=== PATIENT | male | born 1995 | race Caucasian/White ===

== ENCOUNTER 2017-03-21 18:23 | Emergency (ER) | payer BC ==
[~2017-03-21] VITALS: Ht 180.3 cm; Wt 76.0 kg
[2017-03-21 19:06] VITALS: Ht 180.3 cm; Wt 76.0 kg
[2017-03-21] MEDS ORDERED: EPP3/2 IM (19:31)
[2017-03-21 19:35] VITALS: BP 131/78; PULSE 87; TEMP 36.7; O2SAT 97
--- NOTE | 2017-03-22 16:15 | EMERGENCY ROOM VISIT NOTE ---
History First contact with patient: 19:08 Chief Complaint: OTHER COMPLAINT Stated Complaint: POSSIBLE MUMPS History of Present Illness The patient is a 21 year old male who presents to the Emergency Room with complaints of possible exposure to months. Patient states that one of his roomates girlfriend was exposed to months. The roommates girlfriend has been asymptomatic and has not tested for mumps. The patient himself is not experiencing facial pain, fever, chills, lymphadenopathy, chest pain, abdominal pain, testicular pain, or difficulties using the bathroom. He states that he got his normal childhood immunizations when he was younger. He rates his overall discomfort a 0/10. He is a [employer] student. Review of Systems More than 10 systems were reviewed and otherwise negative with the exception of history of present illness. Past Medical/Surgical History No chronic medical disease Family History No pertinent family history Social History Smoking Status: Never Smoker Housing Status: lives with roommate Occupation Status: [employer] student Current/Historical Medications Scheduled PRN Epinephrine (Epipen), 0.3 MG IM UD PRN for Allergic Reaction Physical Exam Vital Signs Date Time Temp Pulse Resp B/P (MAP) Pulse Ox O2 Delivery O2 Flow Rate FiO2 03/21/17 19:35 36.7 87 18 131/78 97 18 19:06 36.7 87 18 131/78 97 Room Air Physical Exam VITALS: Vitals are noted on the nurse's note and reviewed by myself. Vital signs stable. GENERAL: Well-developed, well-nourished, white male, who is in no acute distress and resting comfortably. Patient is cooperative with the examination. MOUTH: Mucous membranes moist. Tonsils are not enlarged. Pharynx without erythema, blood, or exudate. Uvula midline. Airway patent. NECK: Supple without nuchal rigidity. No lymphadenopathy. No thyromegaly. Cervical spine is nontender. HEART: Regular rate and rhythm without murmurs gallops or rubs. LUNGS: Clear to auscultation bilaterally without wheezes, rales or rhonchi. No retractions or accessory muscle use. ABDOMEN: Positive normal bowel sounds x 4. Soft, nontender, without masses or organomegaly. No guarding or rebound tenderness. MUSCULOSKELETAL: No muscle atrophy, erythema, or edema noted. Full range of motion without joint tenderness in all extremities Medical Decision & Procedures ED Course Physical exam and history were performed. Nursing notes, EMR, and Medication List were personally reviewed. Patient appears to have had possible exposure to mumps about 2 weeks ago. The patient is asymptomatic at this time and appears well. He does not have a distinct exposure to mom's himself and is reportedly immunized as a child. The patient does not meet criteria for mumps testing at this time. If he develops symptoms he was asked to follow with [facility] or return to the ER for further management. The patient voiced understanding and was discharged home. The chart was completed utilizing [employer] Voice Recognition Software. Grammatical errors, random word insertions, pronoun errors, and incomplete sentences are an occasional consequence of this system due to software limitations, ambient noise, and hardware issues. Any formal questions or concerns about the content, text, or information contained within the body of this dictation should be directly addressed to the provider for clarification. . Medical Decision Differential diagnosis includes, but is not limited to: Infectious disease exposure, mumps, and others Impression Primary Impression: Infectious disease exposure Departure Information Dispostion Home / Self-Care Condition GOOD Forms HOME CARE DOCUMENTATION FORM, IMPORTANT VISIT INFORMATION Patient Instructions [facility], ED Mumps Additional Instructions You were seen and evaluated today on an emergency basis only. This is not a substitute for, or an effort to provide, complete comprehensive medical care. It is not possible to recognize and treat all injuries or illnesses in a single emergency department visit. For this reason it is recommended that you followup with [facility] or back in the ER if you develop new or worsening symptoms. You are welcome to return to the emergency department anytime with new, worsening, or concerning symptoms.
== END 2017-03-21 19:35 | disposition home or self-care (01) ==
LOC: C.EDB 18:25 → C.EDD 19:35
DX: Z20.89 Contact with and (suspected) exposure to other communicable diseases (principal)

== ENCOUNTER 2017-10-15 21:16 | Emergency (ER) | payer BC ==
[~2017-10-15] VITALS: Ht 180.3 cm; Wt 72.8 kg
[~2017-10-15 21:16] MED LIST: EPP3/2 IM
[2017-10-15 21:23] VITALS: TEMP 36.7; Ht 180.3 cm; Wt 72.8 kg
--- NOTE | 2017-10-15 22:35 | EMERGENCY ROOM VISIT NOTE ---
History First contact with patient: 21:28 Chief Complaint: URINARY SYMPTOMS Stated Complaint: PAINFUL URINATION, GROIN PAIN History of Present Illness The patient is a 22 year old male who presents to the Emergency Room via private vehicle with complaints of "painful urination, groin pain". The patient states that for the past 6 days he has been experiencing discomfort while urinating. He points to the urethral meatus is in the region of pain that he experiences. He notes that he has been in a monogamous heterosexual relationship for about 1 year. He states that he was seen 4 days ago at [facility] and he notes they performed a urinalysis as well as STI testing via urine. He notes that he was informed these were negative. He notes persistence of symptoms and now he has some pain in the left inguinal region. He rates the overall discomfort as a 2/10. He denies discharge. No hematuria. No fevers, chills, abdominal pain. He notes his partner has no symptoms. He notes that he engaged in oral as well as vaginal intercourse. Review of Systems A complete 10-point Review of Systems was discussed with the patient, with pertinent positives and negatives listed in the History of Present Illness. All remaining Review of Systems questions can be considered negative unless otherwise specified. Past Medical/Surgical History No pertinent. Family History No pertinent. Social History Smoking Status: Never Smoker Housing Status: lives with roommate Occupation Status: [employer] student Current/Historical Medications Scheduled PRN Epinephrine (Epipen), 0.3 MG IM UD PRN for Allergic Reaction Physical Exam Vital Signs Date Time Temp Pulse Resp B/P (MAP) Pulse Ox O2 Delivery O2 Flow Rate FiO2 10/15/17 23:51 63 18 116/62 99 Room Air 10/15/17 21:23 36.7 90 16 124/74 98 Room Air Physical Exam VITAL SIGNS - Vital signs and nursing notes were reviewed. Stable. Afebrile. GENERAL -22-year-old male appearing his stated age who is in no acute distress. Communicates well with provider and answers questions appropriately. SKIN - Without rashes. Skin overlying the inguinal region is unremarkable. The penis does elicit some erythema at the urethral meatus. There is serous discharge noted which could be residual urine. HEAD - NC/AT. EYES - Sclera anicteric. EARS - No deformities of external structures noted on gross examination bilaterally. NOSE - Midline and without cyanosis. No epistaxis or purulent drainage noted. MOUTH/OROPHARYNX - Without perioral cyanosis. ABDOMEN - Abdominal contour normal without pulsations or visible masses. No tenderness other than a palpable left inguinal lymph node noted which reproduce tenderness. : Testicle examination unremarkable. Scrotum unremarkable. Urethral meatal irritation/erythema noted. No epididymal tenderness. No inguinal hernia palpated. Medical Decision & Procedures ER Provider Diagnostic Interpretation: (TESTICULAR) SCROTUM-CONT CLINICAL HISTORY: 22 years-old Male presenting with penile pain with urination, L inguinal pain. TECHNIQUE: Real-time grayscale and color and spectral Doppler ultrasound imaging of the scrotum was performed. COMPARISON: None. FINDINGS: Right testis: Normal echogenicity and echotexture. Testis measures 3.4 x 4.4 x 2.3 cm. Normal color Doppler flow and arterial and venous waveforms in the testicular parenchyma. Epididymal head normal. No hydrocele. No varicocele. Left testis: Normal echogenicity and echotexture. Testis measures 2.9 x 4.4 x 2.1 cm. Normal color Doppler flow and arterial and venous waveforms in the testicular parenchyma. Epididymal head normal. Small hydrocele. Varicocele present. Symmetric perfusion of the testes. Other: Benign-appearing left inguinal lymph nodes. These are likely reactive. IMPRESSION: 1. No evidence of testicular torsion. 2. Left varicocele. 3. Small left hydrocele. Electronically signed by: Pepe Ramos M.D. 10/15/2017 10:42 PM Dictated Date/Time: 10/15/2017 10:41 PM Laboratory Results Test 10/15/17 21:56 10/15/17 23:15 Urine Color YELLOW Urine Appearance CLEAR (CLEAR) Urine pH 6.5 (4.5-7.5) Urine Specific [place] 1.017 (1.000-1.030) Urine Protein NEG (NEG) Urine Glucose (UA) NEG (NEG) Urine Ketones NEG (NEG) Urine Occult Blood NEG (NEG) Urine Nitrite NEG (NEG) Urine Bilirubin NEG (NEG) Urine Urobilinogen NEG (NEG) Urine Leukocyte Esterase NEG (NEG) Medications Administered Medications (Trade) Dose Ordered Sig/Tanvi Route Start Time Stop Time Status Last Admin Dose Admin Ceftriaxone Sodium (Rocephin Im) 250 mg NOW STAT IM 10/15/17 23:21 10/15/17 23:23 DC 10/15/17 23:52 250 MG Azithromycin (Zithromax Tab) 1,000 mg NOW STAT PO 10/15/17 23:21 10/15/17 23:23 DC 10/15/17 23:52 1,000 MG Medical Decision Patient was seen and evaluated as above in room C9. Review was performed of nursing notes and vital signs. After obtaining a thorough history and physical examination the above work up was performed. He presents today with burning with urination, with some pain in the left inguinal region. I suspect this is a lymph node in the left inguinal region. I am concerned that he could be experiencing a gonorrhea/chlamydial infection. I did elect to obtain a urinalysis here which was negative. Ultrasound obtained of the scrotum and reveals hydrocele as well as varicocele. I do not believe these are causing his symptoms. I informed him that despite being in a monogamous relationship the largest concern at this time given his workup and presentation is for gonorrhea/chlamydial infections. Benefit versus risk of initiating empiric treatment was discussed. I informed him that the urinalysis that was performed earlier in the week for gonorrhea and chlamydia do not always produce positive results even though an infection could be present. After discussing a thorough benefit versus risk we agreed that treatment at this time is warranted. Case was also discussed with the attending physician. He did consent to urethral swab after discussing benefit versus risk. He tolerated this without difficulty. This was sent to the lab. He was given 1 g of azithromycin p.o. as well as ceftriaxone injection. No reaction noted. He is to refrain from sexual intercourse until symptom-free or he follows up. He is to call [facility] and urology first thing Tuesday. He is to return with worsening. I do not suspect testicular torsion, or any other emergent process this evening. The patient was educated upon management, educated upon todays findings/results, educated upon symptoms in which to return, had questions answered prior to discharge, and was discharged home in good condition. Case was discussed with the attending physician. In the evaluation and treatment of this patient the following differential diagnoses were entertained: Testicular torsion, epididymitis, urethritis, STI, UTI, pyelonephritis, renal calculi, among others. Impression Primary Impression: Symptoms involving urinary system Additional Impression: Urethritis Departure Information Dispostion Home / Self-Care Condition GOOD Referrals [facility] (PCP) Gonsalo So M.D. Patient Instructions My [facility] Additional Instructions You have been treated in the Emergency Department for pain at the urethra. At this time I recommend no sexual intercourse until you are pain-free. Please follow-up with [facility] on Tuesday. Please call them first thing Tuesday. Please call urology as well with persistence of symptoms. You received 2 different antibiotics here which would treat any gonorrhea or chlamydia. All antibiotics have the potential to cause diarrhea. Stop this medication and contact a medical provider if you were to develop any significant adverse side effects including: wheezing, shortness of breath, passing out, vomiting, or a diffuse rash. Always take antibiotics as directed and COMPLETE the ENTIRE course regardless of the improvement of your symptoms. Please rest and stay well-hydrated. For pain control, you can use the following [id number] medicines (if >12 yo): - Regular strength (325mg/tab) Tylenol (acetaminophen) 2 tabs every 4-6 hours as needed. Do not exceed 12 tablets in a 24 hour period. Avoid taking more than 3 grams (3000 mg) of Tylenol per day. This includes any other sources of acetaminophen you may take on a regular basis. - Regular strength (200 mg/tab) Advil (ibuprofen) 1-2 tabs every 4-6 hours as needed. Do not exceed a dose of 3200 mg per day. Return to the emergency department if your symptoms worsen despite treatment course outlined above. Drink plenty of water and stay well hydrated. As with any trip to the Emergency Department, you should follow-up with your Primary Care Provider from today's visit. We did perform a urethral swab here for gonorrhea and chlamydia. If you do not hear back from us in a few days please call here at [phone] and ask for the charge nurse to discuss your urethral swab results for gonorrhea and chlamydia. Return to the emergency department if your symptoms persist despite treatment plan outlined above or if the following symptoms occur: increased fevers, chills , low back pain, nausea/vomiting, or blood in your urine. Problem Qualifiers
--- NOTE | 2017-10-15 22:43 | DIAGNOSTIC IMAGING REPORT ---
(TESTICULAR) SCROTUM-CONT CLINICAL HISTORY: 22 years-old Male presenting with penile pain with urination, L inguinal pain. TECHNIQUE: Real-time grayscale and color and spectral Doppler ultrasound imaging of the scrotum was performed. COMPARISON: None. FINDINGS: Right testis: Normal echogenicity and echotexture. Testis measures 3.4 x 4.4 x 2.3 cm. Normal color Doppler flow and arterial and venous waveforms in the testicular parenchyma. Epididymal head normal. No hydrocele. No varicocele. Left testis: Normal echogenicity and echotexture. Testis measures 2.9 x 4.4 x 2.1 cm. Normal color Doppler flow and arterial and venous waveforms in the testicular parenchyma. Epididymal head normal. Small hydrocele. Varicocele present. Symmetric perfusion of the testes. Other: Benign-appearing left inguinal lymph nodes. These are likely reactive. IMPRESSION: 1. No evidence of testicular torsion. 2. Left varicocele. 3. Small left hydrocele. Electronically signed by: Pepe Ramos M.D. 10/15/2017 10:42 PM Dictated Date/Time: 10/15/2017 10:41 PM
[2017-10-15] MEDS ORDERED: AZITHROMYCIN 250 MG TAB PO STA (23:21)
[2017-10-15] MEDS ORDERED: CEFTRIAXONE SOD 350MG/ML 1 GM VIAL IM STA (23:21)
[2017-10-15 23:51] VITALS: BP 116/62; PULSE 63; O2SAT 99
== END 2017-10-16 00:05 | disposition home or self-care (01) ==
LOC: C.EDB 21:18 → C.EDC 10-16 00:05
DX: N34.2 Other urethritis (principal); N43.3 Hydrocele, unspecified; I86.1 Scrotal varices